=== PATIENT | female | born 1955 | race African-American/Black ===

== ENCOUNTER 2017-06-28 19:30 | Inpatient (IN) ==
[2017-06-28 22:41] LABS: Basophils % 0.3 % (0.0-0.8); Eosinophils % 0.3 % (0.00-10.9); Hematocrit 42.6 VOL% (35.7-47.0); Hemoglobin 14.5 GM/DL (12.0-16.0); Immature Granulocytes % 0.5 %; Immature Granulocytes Absolute 0.04 #; Lymphocytes # 1.8 10*3/uL (1.4-4.0); Lymphocytes % 20.4 % (21.3-54.2); Mean Corpuscular Hemoglobin 30 PG (27-34); Mean Corpuscular Volume 89.3 FL (87-102); Mean Platelet Volume 8.8 FL (9.6-12.0); Monocytes # 0.7 10*3/uL (0.11-0.8); Monocytes % 8.2 % (1.7-12.7); Neutrophils # 6.2 10*3/uL (1.4-7.4); Neutrophils % 70.3 % (38.7-73.9); Platelet Count 255 T/CUMM (130-400); Red Blood Count 4.77 MC/CUMM (3.8-5.5); Red Cell Distribution Width 13.3 % (9.3-17.3); White Blood Count 8.8 T/CUMM (4-12)
[2017-06-28 22:51] LABS: INR 0.9; Partial Thromboplastin Time 28.5 SECS (0-40)
[2017-06-28 23:00] LABS: Alanine Aminotransferase 14 U/L (13-56); Albumin 3.3 G/DL (3.4-5.0); Alkaline Phosphatase 84 U/L (45-117); Aspartate Amino Transferase 6 U/L (0-37); Bilirubin,Total < 0.39 MG/DL (0.2-1.0); Blood Urea Nitrogen 9 MG/DL (7-18); Calcium 9.5 MG/DL (8.5-10.1); Glucose 91 MG/DL (74-106); Osmolality,Calculated 273.7 MOS/KG (273-304); Potassium 3.5 MMOL/L (3.5-5.1); Sodium 138 MMOL/L (136-145); Total Protein 7.1 G/DL (6.4-8.3)
[2017-06-29] MEDS ORDERED: ACETAMINOPHEN 325 MG TABLET PO PRN (01:42)
[2017-06-29] MEDS ORDERED: CHOLESTYRAMINE 4 GM PACK PO PRN (01:50)
[2017-06-29] MEDS ORDERED: HYDROmorphone 2 MG/1 ML VIAL IV STA (01:58)
[2017-06-29] MEDS ORDERED: HYDROmorphone 2 MG/1 ML VIAL ONE (02:02)
[2017-06-29] MEDS ORDERED: INFLUENZA VIRUS VACCINE 0.5 ML SYRINGE IM ONE (04:49)
[2017-06-29] MEDS: PANTOPRAZOLE 40 MG TABLET PO SCH (09:54)
[2017-06-29] MEDS: ISOSORBIDE MONONITRATE 30 MG TABLET PO SCH (09:54)
[2017-06-29] MEDS: RANOLAZINE 500 MG TABLET PO SCH ×2 (09:54→20:10)
[2017-06-29] MEDS: CARVEDILOL 25 MG TABLET PO SCH ×2 (09:54→20:10)
[2017-06-29] MEDS: amLODIPine 10 MG TABLET PO SCH (09:54)
[2017-06-29] MEDS: CLOPIDOGREL 75 MG TABLET PO SCH (09:55)
[2017-06-29] MEDS: ASPIRIN EC 81 MG TABLET PO SCH (09:55)
[2017-06-29] MEDS: traMADol 50 MG TABLET PO SCH ×4 (09:55→20:11)
[2017-06-29] MEDS: cycloSPORINE OPH EMUL 1 VIAL BOTH EYES SCH ×2 (09:55→20:11)
[2017-06-29] MEDS: METOCLOPRAMIDE 5 MG TABLET PO SCH ×4 (09:55→20:10)
[2017-06-29] MEDS: POLYETHYLENE GLYCOL POWDER 17 GM PACK PO SCH (09:55)
[2017-06-29] MEDS: DEXAMETHASONE 10 MG/1 ML VIAL IV SCH ×2 (15:36→20:11)
[2017-06-29] MEDS: PRAVASTATIN 40 MG TABLET PO SCH (20:10)
[2017-06-29] MEDS ORDERED: TEMOZOLOMIDE PO SCH (21:00)
[2017-06-30] MEDS ORDERED: ZIPRASIDONE 20 MG/1 ML VIAL IM PRN (01:43)
[2017-06-30] MEDS ORDERED: SODIUM CHLORIDE 0.9% IV ONE ×2 (07:33→13:30)
[2017-06-30] MEDS ORDERED: BEVACIZUMAB IV ONE ×2 (07:33→13:30)
[2017-06-30] MEDS: METOCLOPRAMIDE 5 MG TABLET PO SCH ×4 (09:15→21:52)
[2017-06-30] MEDS: POLYETHYLENE GLYCOL POWDER 17 GM PACK PO SCH (09:15)
[2017-06-30] MEDS: amLODIPine 10 MG TABLET PO SCH (09:15)
[2017-06-30] MEDS: CARVEDILOL 25 MG TABLET PO SCH ×2 (09:16→21:54)
[2017-06-30] MEDS: PANTOPRAZOLE 40 MG TABLET PO SCH (09:16)
[2017-06-30] MEDS: ISOSORBIDE MONONITRATE 30 MG TABLET PO SCH (09:16)
[2017-06-30] MEDS: ASPIRIN EC 81 MG TABLET PO SCH (09:16)
[2017-06-30] MEDS: RANOLAZINE 500 MG TABLET PO SCH ×2 (09:16→21:55)
[2017-06-30] MEDS: DEXAMETHASONE 10 MG/1 ML VIAL IV SCH ×2 (09:17→21:56)
[2017-06-30] MEDS: traMADol 50 MG TABLET PO SCH ×4 (09:17→21:54)
[2017-06-30] MEDS: CLOPIDOGREL 75 MG TABLET PO SCH (09:18)
[2017-06-30] MEDS: cycloSPORINE OPH EMUL 1 VIAL BOTH EYES SCH ×2 (09:24→22:01)
[2017-06-30 12:02] LABS: Apearance,Urine Slightly Hazy (Clear); Bilirubin,Urine Negative (Negative); Blood, Urine Negative (Negative); Glucose,Urine (UA) Negative (Negative); Ketones,Urine Negative (Negative); Mucus,Urine Occasional /LPF (Occasional); Nitrite,Urine Negative (Negative); Protein,Urine 30 MG/DL; RBC,Urine 1 /HPF (0-4); Squamous Epithelial Cell,Urine Occasional /HPF (0-10); Urine Color Amber (Yellow); Urine Specific Gravity 1.019 (1.001-1.035)
[2017-06-30 15:01] LABS: Troponin I Only < 0.015 NG/ML (0.00-0.045)
[2017-06-30] MEDS: PRAVASTATIN 40 MG TABLET PO SCH (21:52)
[2017-07-01 06:58] LABS: Basophils % 0.1 % (0.0-0.8); Hematocrit 37.4 VOL% (35.7-47.0); Hemoglobin 12.8 GM/DL (12.0-16.0); Immature Granulocytes % 0.8 %; Immature Granulocytes Absolute 0.18 #; Lymphocytes # 0.9 10*3/uL (1.4-4.0); Mean Corpuscular HGB Conc 34.2 GM/DL (32-36); Mean Corpuscular Hemoglobin 31 PG (27-34); Monocytes # 0.4 10*3/uL (0.11-0.8); Monocytes % 1.8 % (1.7-12.7); Neutrophils # 21.7 10*3/uL (1.4-7.4); Neutrophils % 93.3 % (38.7-73.9); Platelet Count 265 T/CUMM (130-400); Red Cell Distribution Width 13.4 % (9.3-17.3); White Blood Count 23.2 T/CUMM (4-12)
[2017-07-01 07:24] LABS: Lymphocytes 5 % (20-55); Macrocytosis 1+; Microcytosis Slight; Platelet Estimate Adequate; Segmented Neutrophils 93 % (50-85); Total Cells Counted 100
[2017-07-01 07:31] LABS: Osmolality,Calculated 283.4 MOS/KG (273-304); Potassium 4.1 MMOL/L (3.5-5.1)
[2017-07-01] MEDS: METOCLOPRAMIDE 5 MG TABLET PO SCH ×2 (08:59→12:44)
[2017-07-01] MEDS: ISOSORBIDE MONONITRATE 30 MG TABLET PO SCH (08:59)
[2017-07-01] MEDS: PANTOPRAZOLE 40 MG TABLET PO SCH (08:59)
[2017-07-01] MEDS: RANOLAZINE 500 MG TABLET PO SCH (08:59)
[2017-07-01] MEDS: ASPIRIN EC 81 MG TABLET PO SCH (08:59)
[2017-07-01] MEDS: amLODIPine 10 MG TABLET PO SCH (08:59)
[2017-07-01] MEDS: CARVEDILOL 25 MG TABLET PO SCH (08:59)
[2017-07-01] MEDS: cycloSPORINE OPH EMUL 1 VIAL BOTH EYES SCH (09:00)
[2017-07-01] MEDS ORDERED: DEXAMETHASONE 4 MG TABLET PO SCH (09:00)
[2017-07-01] MEDS: POLYETHYLENE GLYCOL POWDER 17 GM PACK PO SCH (09:01)
[2017-07-01] MEDS: CLOPIDOGREL 75 MG TABLET PO SCH (09:01)
[2017-07-01] MEDS: traMADol 50 MG TABLET PO SCH ×3 (09:01→12:56)
[2017-07-01 12:29] VITALS: BP 123/77
== END 2017-07-01 13:20 | disposition home health service (06) | DRG 54 ==
LOC: N.ED 19:30 → N.EDINP 06-29 01:42 → N.4E 06-29 02:24
PROVIDERS: ADMIT Internal Medicine; ATTEND Internal Medicine

== ENCOUNTER 2017-07-08 13:45 | Inpatient (IN) ==
[2017-07-08] MEDS ORDERED: ALUM/MAG/SIMETH/LIDO VISC 1:1 30 ML BOTTLE PO STA (15:55)
[2017-07-08] MEDS ORDERED: SODIUM CHLORIDE 0.9% 1,000 ML IV STA (15:55)
[2017-07-08] MEDS ORDERED: ALUM/MAG/SIMETH/LIDO VISC 1:1 30 ML BOTTLE PO ONE (16:04)
[2017-07-08] MEDS ORDERED: FLUCONAZOLE INJ 400 MG in PREMIX 1 EACH IV ONE (16:05)
[2017-07-08 18:40] LABS: Basophils % 0.2 % (0.0-0.8); Hematocrit 43.7 VOL% (35.7-47.0); Hemoglobin 15.2 GM/DL (12.0-16.0); Immature Granulocytes % 1.5 %; Immature Granulocytes Absolute 0.21 #; Lymphocytes # 0.9 10*3/uL (1.4-4.0); Lymphocytes % 6.4 % (21.3-54.2); Mean Corpuscular HGB Conc 34.8 GM/DL (32-36); Mean Corpuscular Hemoglobin 31 PG (27-34); Mean Corpuscular Volume 88.3 FL (87-102); Mean Platelet Volume 8.9 FL (9.6-12.0); Monocytes # 0.3 10*3/uL (0.11-0.8); Monocytes % 2.4 % (1.7-12.7); Neutrophils # 12.4 10*3/uL (1.4-7.4); Neutrophils % 89.5 % (38.7-73.9); Platelet Count 188 T/CUMM (130-400); Red Blood Count 4.95 MC/CUMM (3.8-5.5); Red Cell Distribution Width 13.2 % (9.3-17.3); White Blood Count 13.8 T/CUMM (4-12)
[2017-07-08 18:48] LABS: INR 1.1; PT Patient Result 11.1 SECS
[2017-07-08 19:07] LABS: Alanine Aminotransferase 39 U/L (13-56); Albumin 2.8 G/DL (3.4-5.0); Alkaline Phosphatase 56 U/L (45-117); Aspartate Amino Transferase 11 U/L (0-37); Bilirubin,Total < 0.39 MG/DL (0.2-1.0); Blood Urea Nitrogen 29 MG/DL (7-18); Calcium 8.9 MG/DL (8.5-10.1); Glucose 129 MG/DL (74-106); Magnesium 2.8 MG/DL (1.8-2.4); Osmolality,Calculated 277.1 MOS/KG (273-304); Potassium 4.9 MMOL/L (3.5-5.1); Sodium 135 MMOL/L (136-145); Total Protein 5.9 G/DL (6.4-8.3)
[2017-07-08 19:21] LABS: Apearance,Urine CLEAR (Clear); Bilirubin,Urine Negative (Negative); Blood, Urine Negative (Negative); Glucose,Urine (UA) Negative (Negative); Ketones,Urine Negative (Negative); Nitrite,Urine Negative (Negative); Protein,Urine Negative; Squamous Epithelial Cell,Urine Occasional /HPF (0-10); Urine Color Straw (Yellow); Urine Urobilinogen < 2.0 EU/DL (0.2-1.0); WBC,Urine <1 /HPF (0-6)
[2017-07-08] MEDS ORDERED: TEMAZEPAM 7.5 MG CAPSULE PO PRN (19:49)
[2017-07-08] MEDS ORDERED: traMADol 50 MG TABLET PO PRN (19:49)
[2017-07-08] MEDS ORDERED: LACTULOSE 20 GM/30 ML UDCUP PO PRN (19:49)
[2017-07-08] MEDS ORDERED: ALUMINUM/MAGNES/SIMETH MAX STR 30 ML UDCUP PO PRN (19:49)
[2017-07-08] MEDS ORDERED: chlorproMAZINE 25 MG TABLET PO PRN (19:49)
[2017-07-08] MEDS ORDERED: BENZTROPINE 2 MG/2 ML AMP IV PRN (19:49)
[2017-07-08] MEDS ORDERED: LOPERAMIDE 2 MG CAPSULE PO PRN ×2 (19:49)
[2017-07-08] MEDS ORDERED: guaiFENesin 200 MG/10 ML UDCUP PO PRN (19:49)
[2017-07-08] MEDS ORDERED: ACETAMINOPHEN 325 MG TABLET PO PRN (19:49)
[2017-07-08] MEDS ORDERED: ONDANSETRON 4 MG/2 ML VIAL IV PRN (19:49)
[2017-07-08] MEDS ORDERED: diphenhydrAMINE CAP 25 MG CAPSULE PO PRN (19:49)
[2017-07-08] MEDS ORDERED: MAGNESIUM HYDROXIDE SUSP 30 ML UDCUP PO PRN (19:49)
[2017-07-08] MEDS ORDERED: ALPRAZolam 0.25 MG TABLET PO PRN (19:49)
[2017-07-08] MEDS ORDERED: PROMETHAZINE INJ 25 MG in SODIUM CHLORIDE 0.9% 50 ML IV PRN (19:49)
[2017-07-08] MEDS ORDERED: MYLANTA/LIDO VISC 2:1 300 ML BOTTLE SWISH/SWAL PRN (19:49)
[2017-07-08] MEDS ORDERED: chlorproMAZINE INJ 50 MG in SODIUM CHLORIDE 0.9% 100 ML IV PRN (19:49)
[2017-07-08] MEDS ORDERED: chlorproMAZINE INJ 25 MG in SODIUM CHLORIDE 0.9% 100 ML IV PRN (19:49)
[2017-07-08] MEDS: SODIUM CHLORIDE 0.9% 1,000 ML IV SCH (20:50)
[2017-07-09] MEDS: SODIUM CHLORIDE 0.9% 1,000 ML IV SCH ×3 (07:55→18:30)
[2017-07-09] MEDS ORDERED: NAPROXEN 500 MG TABLET PO PRN (10:04)
[2017-07-09] MEDS ORDERED: tiZANidine 4 MG TABLET PO PRN (10:04)
[2017-07-09] MEDS ORDERED: cycloSPORINE OPH EMUL 1 VIAL BOTH EYES PRN (10:04)
[2017-07-09] MEDS: FLUCONAZOLE INJ 400 MG in PREMIX 1 EACH IV SCH (10:46)
[2017-07-09] MEDS: CARVEDILOL 25 MG TABLET PO SCH ×2 (10:47→20:43)
[2017-07-09] MEDS: PANTOPRAZOLE 40 MG TABLET PO SCH (10:47)
[2017-07-09] MEDS: ISOSORBIDE MONONITRATE 30 MG TABLET PO SCH (10:47)
[2017-07-09] MEDS: amLODIPine 10 MG TABLET PO SCH (10:47)
[2017-07-09] MEDS: ASPIRIN EC 81 MG TABLET PO SCH (10:47)
[2017-07-09] MEDS: DEXAMETHASONE 4 MG TABLET PO SCH ×2 (10:47→20:43)
[2017-07-09] MEDS: levETIRAcetam 500 MG TABLET PO SCH ×2 (10:47→20:43)
[2017-07-09] MEDS: RANOLAZINE 500 MG TABLET PO SCH ×2 (10:47→20:42)
[2017-07-09] MEDS: METOCLOPRAMIDE 5 MG TABLET PO SCH ×3 (10:47→20:46)
[2017-07-09] MEDS: MYLANTA/LIDO VISC 2:1 300 ML BOTTLE SWISH/SPIT PRN ×2 (13:21→16:34)
[2017-07-09] MEDS: traMADol 50 MG TABLET PO SCH (16:33)
[2017-07-09] MEDS ORDERED: ONDANSETRON 4 MG TABLET PO SCH (21:00)
[2017-07-09] MEDS ORDERED: GABAPENTIN 100 MG CAPSULE PO SCH (21:00)
[2017-07-09] MEDS ORDERED: PRAVASTATIN 40 MG TABLET PO SCH (21:00)
[2017-07-09] MEDS ORDERED: TEMOZOLOMIDE PO SCH (21:00)
[2017-07-10] MEDS: SODIUM CHLORIDE 0.9% 1,000 ML IV SCH ×2 (02:17→08:59)
[2017-07-10 07:00] LABS: Basophils % 0.1 % (0.0-0.8); Hematocrit 37.8 VOL% (35.7-47.0); Hemoglobin 12.8 GM/DL (12.0-16.0); Immature Granulocytes % 1.3 %; Lymphocytes # 0.5 10*3/uL (1.4-4.0); Mean Corpuscular HGB Conc 33.9 GM/DL (32-36); Mean Corpuscular Hemoglobin 30 PG (27-34); Mean Corpuscular Volume 89.4 FL (87-102); Mean Platelet Volume 9.6 FL (9.6-12.0); Monocytes # 0.3 10*3/uL (0.11-0.8); Monocytes % 2.1 % (1.7-12.7); Neutrophils # 14.8 10*3/uL (1.4-7.4); Neutrophils % 93.5 % (38.7-73.9); Platelet Count 164 T/CUMM (130-400); Red Blood Count 4.23 MC/CUMM (3.8-5.5); Red Cell Distribution Width 13.7 % (9.3-17.3); White Blood Count 15.8 T/CUMM (4-12)
[2017-07-10 08:10] LABS: Burr Cells Slight; Hypochromasia Slight; Lymphocytes 7 % (20-55); Ovalocytes Slight; Platelet Estimate Normal; Segmented Neutrophils 93 % (50-85); Total Cells Counted 100
[2017-07-10 08:11] LABS: Giant Platelets Few
[2017-07-10] MEDS: FLUCONAZOLE INJ 400 MG in PREMIX 1 EACH IV SCH (09:01)
[2017-07-10] MEDS: METOCLOPRAMIDE 5 MG TABLET PO SCH (09:02)
[2017-07-10] MEDS: amLODIPine 10 MG TABLET PO SCH (09:02)
[2017-07-10] MEDS: traMADol 50 MG TABLET PO SCH (09:03)
[2017-07-10] MEDS: levETIRAcetam 500 MG TABLET PO SCH (09:03)
[2017-07-10] MEDS: DEXAMETHASONE 4 MG TABLET PO SCH (09:03)
[2017-07-10] MEDS: ISOSORBIDE MONONITRATE 30 MG TABLET PO SCH (09:05)
[2017-07-10] MEDS: PANTOPRAZOLE 40 MG TABLET PO SCH (09:05)
[2017-07-10] MEDS: CARVEDILOL 25 MG TABLET PO SCH (09:05)
[2017-07-10] MEDS: RANOLAZINE 500 MG TABLET PO SCH (09:05)
[2017-07-10] MEDS: ASPIRIN EC 81 MG TABLET PO SCH (09:05)
[2017-07-10 11:24] LABS: Albumin 2.3 G/DL (3.4-5.0); Bilirubin,Total 0.5 MG/DL (0.2-1.0); Calcium 8.4 MG/DL (8.5-10.1); Osmolality,Calculated 286.4 MOS/KG (273-304); Potassium 4.2 MMOL/L (3.5-5.1); Total Protein 5.1 G/DL (6.4-8.3)
[2017-07-10 11:58] VITALS: BP 120/60
== END 2017-07-10 14:13 | disposition home health service (06) | DRG 55 ==
LOC: N.ED 13:45 → N.EDINP 17:35 → N.4E 18:56
PROVIDERS: ADMIT Specialist; ATTEND Specialist

== ENCOUNTER 2017-07-19 21:09 | Inpatient (IN) ==
[2017-07-19 23:37] LABS: Basophils % 0.1 % (0.0-0.8); Hemoglobin 14.4 GM/DL (12.0-16.0); Immature Granulocytes Absolute 0.51 #; Lymphocytes # 0.3 10*3/uL (1.4-4.0); Mean Corpuscular HGB Conc 34.3 GM/DL (32-36); Mean Corpuscular Hemoglobin 31 PG (27-34); Mean Corpuscular Volume 89.6 FL (87-102); Monocytes # 0.3 10*3/uL (0.11-0.8); NRBC # 0.07 10*3/uL; Neutrophils # 15.6 10*3/uL (1.4-7.4); Neutrophils % 92.9 % (38.7-73.9); Platelet Count 114 T/CUMM (130-400); Red Blood Count 4.69 MC/CUMM (3.8-5.5); Red Cell Distribution Width 15.2 % (9.3-17.3); White Blood Count 16.8 T/CUMM (4-12)
[2017-07-20 00:06] LABS: Albumin 2.4 G/DL (3.4-5.0); Bilirubin,Total 0.4 MG/DL (0.2-1.0); Calcium 8.2 MG/DL (8.5-10.1); Total Protein 5.4 G/DL (6.4-8.3)
[2017-07-20 00:07] LABS: Potassium 5.2 MMOL/L (3.5-5.1)
[2017-07-20 00:10] LABS: Troponin I Only 0.058 NG/ML (0.00-0.045)
[2017-07-20 01:59] LABS: Apearance,Urine HAZY (Clear); Glucose,Urine (UA) Negative (Negative); Ketones,Urine Negative (Negative); Protein,Urine 30 MG/DL; Urine Color Yellow (Yellow)
[2017-07-20 02:00] LABS: Bilirubin,Urine Negative (Negative); Blood, Urine Trace mg/dL (Negative); Nitrite,Urine Negative (Negative); Urine Urobilinogen 0.2 EU/DL (0.2-1.0)
[2017-07-20 02:01] LABS: Ictotest,Urine Negative (Negative)
[2017-07-20 03:05] LABS: Band Neutrophils 1 % (0-10); Lymphocytes 3 % (20-55); Platelet Estimate Normal; Segmented Neutrophils 95 % (50-85); Total Cells Counted 100
[2017-07-20] MEDS ORDERED: ACETAMINOPHEN 325 MG TABLET PO PRN (04:42)
[2017-07-20] MEDS ORDERED: ONDANSETRON 4 MG/2 ML VIAL IV PRN (04:42)
[2017-07-20] MEDS ORDERED: NICOTINE 21 MG/24 HR PATCH TRANSDERM PRN (04:42)
[2017-07-20] MEDS ORDERED: CALCIUM GLUCONATE 1,000 MG in SODIUM CHLORIDE 0.9% 100 ML IV ONE (04:42)
[2017-07-20] MEDS ORDERED: MORPHINE 2 MG/1 ML SYRINGE IV PRN (04:42)
[2017-07-20] MEDS ORDERED: cycloSPORINE OPH EMUL 1 VIAL BOTH EYES PRN (04:42)
[2017-07-20] MEDS ORDERED: INFLUENZA VIRUS VACCINE 0.5 ML SYRINGE IM ONE (05:01)
[2017-07-20] MEDS: SODIUM CHLORIDE 0.9% 1,000 ML IV SCH ×2 (05:24→21:16)
[2017-07-20] MEDS: CIPROFLOXACIN INJ 400 MG in PREMIX 1 EACH IV SCH ×2 (05:24→16:03)
[2017-07-20] MEDS: METOCLOPRAMIDE 5 MG TABLET PO SCH ×4 (07:29→20:36)
[2017-07-20] MEDS: levETIRAcetam 500 MG TABLET PO SCH ×2 (10:04→20:36)
[2017-07-20] MEDS: DEXAMETHASONE 4 MG TABLET PO SCH ×2 (10:04→20:36)
[2017-07-20] MEDS: DOCUSATE SODIUM 100 MG CAPSULE PO SCH ×2 (10:05→20:36)
[2017-07-20] MEDS: hydrALAZINE 25 MG TABLET PO SCH ×3 (10:05→20:35)
[2017-07-20] MEDS: PANTOPRAZOLE 40 MG TABLET PO SCH (10:05)
[2017-07-20] MEDS: ASPIRIN EC 81 MG TABLET PO SCH (10:06)
[2017-07-20] MEDS: ENOXAPARIN 40 MG/0.4 ML SYRINGE SUBCUT SCH (10:06)
[2017-07-20] MEDS: RANOLAZINE 500 MG TABLET PO SCH ×2 (10:06→21:18)
[2017-07-20] MEDS: CARVEDILOL 25 MG TABLET PO SCH ×2 (10:06→20:36)
[2017-07-20] MEDS: KETOCONAZOLE 2% CREAM 30 GM TUBE TOP SCH ×2 (10:06→21:19)
[2017-07-20 12:48] LABS: Calcium 8.3 MG/DL (8.5-10.1); Magnesium 2.1 MG/DL (1.8-2.4); Osmolality,Calculated 280.7 MOS/KG (273-304); Potassium 4.8 MMOL/L (3.5-5.1)
[2017-07-20 12:53] LABS: Troponin I Only 0.058 NG/ML (0.00-0.045)
[2017-07-20] MEDS ORDERED: CLOPIDOGREL 300 MG TABLET PO ONE (14:41)
[2017-07-20 14:56] LABS: Troponin I Only 0.057 NG/ML (0.00-0.045)
[2017-07-20] MEDS: DESITIN 4OZ/NYSTATIN 15 GRAM MIXTURE PASTE TOP SCH ×2 (18:03→20:40)
[2017-07-20] MEDS: PRAVASTATIN 40 MG TABLET PO SCH (21:19)
[2017-07-20] MEDS: amLODIPine 10 MG TABLET PO SCH (21:19)
[2017-07-21 04:45] LABS: Basophils % 0.2 % (0.0-0.8); Hematocrit 39.4 VOL% (35.7-47.0); Hemoglobin 13.8 GM/DL (12.0-16.0); Immature Granulocytes % 2.3 %; Lymphocytes # 0.3 10*3/uL (1.4-4.0); Mean Corpuscular Hemoglobin 31 PG (27-34); Mean Corpuscular Volume 87.2 FL (87-102); Mean Platelet Volume 9.9 FL (9.6-12.0); Monocytes # 0.2 10*3/uL (0.11-0.8); Monocytes % 1.4 % (1.7-12.7); Neutrophils # 12.5 10*3/uL (1.4-7.4); Neutrophils % 94.1 % (38.7-73.9); Platelet Count 101 T/CUMM (130-400); Red Blood Count 4.52 MC/CUMM (3.8-5.5); Red Cell Distribution Width 15.2 % (9.3-17.3); White Blood Count 13.3 T/CUMM (4-12)
[2017-07-21] MEDS: CIPROFLOXACIN INJ 400 MG in PREMIX 1 EACH IV SCH ×2 (05:15→18:56)
[2017-07-21 05:17] LABS: Apearance,Urine Clear (Clear); Bilirubin,Urine Negative (Negative); Glucose,Urine (UA) Negative (Negative); Ketones,Urine Negative (Negative); Nitrite,Urine Negative (Negative); Protein,Urine Negative; Urine Color Straw (Yellow)
[2017-07-21 05:18] LABS: Blood, Urine Negative (Negative); Squamous Epithelial Cell,Urine Rare /HPF (0-10); Urine Urobilinogen 0.2 EU/DL (0.2-1.0); WBC,Urine Rare /HPF (0-6)
[2017-07-21 05:21] LABS: Band Neutrophils 1 % (0-10); Calcium 8.2 MG/DL (8.5-10.1); Magnesium 2.2 MG/DL (1.8-2.4); Nucleated Red Blood Cells 1 (0-5); Osmolality,Calculated 279.8 MOS/KG (273-304); Potassium 4.5 MMOL/L (3.5-5.1); Risk Ratio 2.87; Segmented Neutrophils 99 % (50-85); Total Cells Counted 100; VLDL CHOLESTEROL 50.4 MG/DL
[2017-07-21 05:22] LABS: Platelet Estimate Decreased; Polychromasia Slight
[2017-07-21 05:23] LABS: Target Cells Few
[2017-07-21] MEDS: hydrALAZINE 25 MG TABLET PO SCH (09:50)
[2017-07-21] MEDS: ASPIRIN EC 81 MG TABLET PO SCH (09:51)
[2017-07-21] MEDS: CARVEDILOL 25 MG TABLET PO SCH ×2 (09:51→21:06)
[2017-07-21] MEDS: ENOXAPARIN 40 MG/0.4 ML SYRINGE SUBCUT SCH (09:51)
[2017-07-21] MEDS: levETIRAcetam 500 MG TABLET PO SCH ×2 (09:51→21:06)
[2017-07-21] MEDS: DOCUSATE SODIUM 100 MG CAPSULE PO SCH ×2 (09:51→21:05)
[2017-07-21] MEDS: METOCLOPRAMIDE 5 MG TABLET PO SCH ×4 (09:51→21:06)
[2017-07-21] MEDS: CLOPIDOGREL 75 MG TABLET PO SCH (09:51)
[2017-07-21] MEDS: PANTOPRAZOLE 40 MG TABLET PO SCH (09:51)
[2017-07-21] MEDS: DEXAMETHASONE 4 MG TABLET PO SCH ×2 (09:51→21:06)
[2017-07-21] MEDS: RANOLAZINE 500 MG TABLET PO SCH ×2 (09:51→21:06)
[2017-07-21] MEDS: DESITIN 4OZ/NYSTATIN 15 GRAM MIXTURE PASTE TOP SCH ×2 (12:51→21:06)
[2017-07-21] MEDS: KETOCONAZOLE 2% CREAM 30 GM TUBE TOP SCH ×2 (12:52→21:06)
[2017-07-21] MEDS: SODIUM CHLORIDE 0.9% 1,000 ML IV SCH ×2 (12:56→21:03)
[2017-07-21] MEDS: PRAVASTATIN 40 MG TABLET PO SCH (21:05)
[2017-07-21] MEDS: amLODIPine 10 MG TABLET PO SCH (21:06)
[2017-07-22 05:15] LABS: Basophils % 0.1 % (0.0-0.8); Hematocrit 38.3 VOL% (35.7-47.0); Hemoglobin 13.3 GM/DL (12.0-16.0); Immature Granulocytes % 2.7 %; Immature Granulocytes Absolute 0.32 #; Lymphocytes # 0.2 10*3/uL (1.4-4.0); Lymphocytes % 1.6 % (21.3-54.2); Mean Corpuscular HGB Conc 34.7 GM/DL (32-36); Mean Corpuscular Hemoglobin 31 PG (27-34); Mean Corpuscular Volume 87.8 FL (87-102); Mean Platelet Volume 10.2 FL (9.6-12.0); Monocytes # 0.3 10*3/uL (0.11-0.8); Monocytes % 2.1 % (1.7-12.7); Neutrophils # 10.9 10*3/uL (1.4-7.4); Neutrophils % 93.5 % (38.7-73.9); Platelet Count 91 T/CUMM (130-400); Red Blood Count 4.36 MC/CUMM (3.8-5.5); White Blood Count 11.7 T/CUMM (4-12)
[2017-07-22] MEDS: CIPROFLOXACIN INJ 400 MG in PREMIX 1 EACH IV SCH ×2 (05:18→17:47)
[2017-07-22 05:40] LABS: Band Neutrophils 1 % (0-10); Giant Platelets Few; Hypochromasia 1+; Platelet Estimate Decreased; Segmented Neutrophils 97 % (50-85); Total Cells Counted 100
[2017-07-22 05:50] LABS: Calcium 7.9 MG/DL (8.5-10.1); Osmolality,Calculated 281.8 MOS/KG (273-304); Potassium 3.9 MMOL/L (3.5-5.1)
[2017-07-22] MEDS: DEXAMETHASONE 4 MG TABLET PO SCH ×2 (09:06→21:27)
[2017-07-22] MEDS: METOCLOPRAMIDE 5 MG TABLET PO SCH ×4 (09:07→21:28)
[2017-07-22] MEDS: RANOLAZINE 500 MG TABLET PO SCH ×2 (09:07→21:28)
[2017-07-22] MEDS: PANTOPRAZOLE 40 MG TABLET PO SCH (09:07)
[2017-07-22] MEDS: CARVEDILOL 25 MG TABLET PO SCH ×2 (09:09→21:28)
[2017-07-22] MEDS: CLOPIDOGREL 75 MG TABLET PO SCH (09:09)
[2017-07-22] MEDS: ASPIRIN EC 81 MG TABLET PO SCH (09:09)
[2017-07-22] MEDS: levETIRAcetam 500 MG TABLET PO SCH ×2 (09:09→21:28)
[2017-07-22] MEDS: DOCUSATE SODIUM 100 MG CAPSULE PO SCH ×2 (09:09→21:28)
[2017-07-22] MEDS: KETOCONAZOLE 2% CREAM 30 GM TUBE TOP SCH ×2 (09:10→21:32)
[2017-07-22] MEDS: DESITIN 4OZ/NYSTATIN 15 GRAM MIXTURE PASTE TOP SCH ×2 (09:10→21:32)
[2017-07-22] MEDS: ENOXAPARIN 40 MG/0.4 ML SYRINGE SUBCUT SCH (09:10)
[2017-07-22 13:24] LABS: Apearance,Urine CLEAR (Clear); Bacteria,Urine Occasional /HPF (Few); Bilirubin,Urine Negative (Negative); Blood, Urine Negative (Negative); Glucose,Urine (UA) Negative (Negative); Hyaline Casts,Urine 1 /LPF (0-3); Ketones,Urine Negative (Negative); Mucus,Urine Occasional /LPF (Occasional); Nitrite,Urine Negative (Negative); Protein,Urine Negative; RBC,Urine 7 /HPF (0-4); Urine Color Yellow (Yellow); Urine Specific Gravity 1.013 (1.001-1.035); Urine Urobilinogen < 2.0 EU/DL (0.2-1.0); WBC,Urine 4 /HPF (0-6)
[2017-07-22] MEDS: SODIUM CHLORIDE 0.9% 1,000 ML IV SCH (17:51)
[2017-07-22] MEDS: amLODIPine 10 MG TABLET PO SCH (21:28)
[2017-07-22] MEDS: PRAVASTATIN 40 MG TABLET PO SCH (21:28)
[2017-07-22] MEDS: traZODone 50 MG TABLET PO SCH (22:57)
[2017-07-23] MEDS: SODIUM CHLORIDE 0.9% 1,000 ML IV SCH ×2 (01:25→16:33)
[2017-07-23] MEDS: CIPROFLOXACIN INJ 400 MG in PREMIX 1 EACH IV SCH ×2 (04:43→16:31)
[2017-07-23 04:54] LABS: Basophils % 0.2 % (0.0-0.8); Hematocrit 36.8 VOL% (35.7-47.0); Immature Granulocytes % 2.3 %; Immature Granulocytes Absolute 0.21 #; Lymphocytes # 0.2 10*3/uL (1.4-4.0); Lymphocytes % 2.2 % (21.3-54.2); Mean Corpuscular HGB Conc 35.3 GM/DL (32-36); Mean Corpuscular Hemoglobin 31 PG (27-34); Mean Corpuscular Volume 87.2 FL (87-102); Mean Platelet Volume 10.7 FL (9.6-12.0); Monocytes # 0.3 10*3/uL (0.11-0.8); Neutrophils # 8.6 10*3/uL (1.4-7.4); Neutrophils % 92.3 % (38.7-73.9); Platelet Count 87 T/CUMM (130-400); Red Blood Count 4.22 MC/CUMM (3.8-5.5); Red Cell Distribution Width 15.3 % (9.3-17.3); White Blood Count 9.3 T/CUMM (4-12)
[2017-07-23 05:17] LABS: Calcium 7.8 MG/DL (8.5-10.1); Magnesium 1.9 MG/DL (1.8-2.4); Osmolality,Calculated 283.5 MOS/KG (273-304); Potassium 3.8 MMOL/L (3.5-5.1)
[2017-07-23 05:33] LABS: Band Neutrophils 6 % (0-10); Lymphocytes 1 % (20-55); Segmented Neutrophils 88 % (50-85); Total Cells Counted 100
[2017-07-23 05:34] LABS: Anisocytosis 1+; Poikilocytosis 1+; Polychromasia Slight
[2017-07-23] MEDS: METOCLOPRAMIDE 5 MG TABLET PO SCH ×4 (09:34→21:33)
[2017-07-23] MEDS: CLOPIDOGREL 75 MG TABLET PO SCH (09:34)
[2017-07-23] MEDS: RANOLAZINE 500 MG TABLET PO SCH ×2 (09:34→21:33)
[2017-07-23] MEDS: levETIRAcetam 500 MG TABLET PO SCH ×2 (09:34→21:32)
[2017-07-23] MEDS: ENOXAPARIN 40 MG/0.4 ML SYRINGE SUBCUT SCH (09:34)
[2017-07-23] MEDS: ASPIRIN EC 81 MG TABLET PO SCH (09:34)
[2017-07-23] MEDS: DOCUSATE SODIUM 100 MG CAPSULE PO SCH ×2 (09:35→21:33)
[2017-07-23] MEDS: DEXAMETHASONE 4 MG TABLET PO SCH ×2 (09:35→21:32)
[2017-07-23] MEDS: CARVEDILOL 25 MG TABLET PO SCH ×2 (09:35→21:33)
[2017-07-23] MEDS: PANTOPRAZOLE 40 MG TABLET PO SCH (09:35)
[2017-07-23] MEDS: DESITIN 4OZ/NYSTATIN 15 GRAM MIXTURE PASTE TOP SCH ×2 (09:35→21:36)
[2017-07-23] MEDS: KETOCONAZOLE 2% CREAM 30 GM TUBE TOP SCH ×2 (09:37→21:34)
[2017-07-23] MEDS: PRAVASTATIN 40 MG TABLET PO SCH (21:32)
[2017-07-23] MEDS: amLODIPine 10 MG TABLET PO SCH (21:32)
[2017-07-23] MEDS: traZODone 50 MG TABLET PO SCH (21:32)
[2017-07-24] MEDS: CIPROFLOXACIN INJ 400 MG in PREMIX 1 EACH IV SCH ×2 (04:57→16:11)
[2017-07-24] MEDS: SODIUM CHLORIDE 0.9% 1,000 ML IV SCH ×3 (06:37→16:35)
[2017-07-24] MEDS: METOCLOPRAMIDE 5 MG TABLET PO SCH ×4 (07:59→21:17)
[2017-07-24] MEDS: levETIRAcetam 500 MG TABLET PO SCH ×2 (09:34→21:17)
[2017-07-24] MEDS: ASPIRIN EC 81 MG TABLET PO SCH (09:34)
[2017-07-24] MEDS: ENOXAPARIN 40 MG/0.4 ML SYRINGE SUBCUT SCH (09:34)
[2017-07-24] MEDS: CLOPIDOGREL 75 MG TABLET PO SCH (09:34)
[2017-07-24] MEDS: PANTOPRAZOLE 40 MG TABLET PO SCH (09:34)
[2017-07-24] MEDS: DOCUSATE SODIUM 100 MG CAPSULE PO SCH ×2 (09:34→21:17)
[2017-07-24] MEDS: CARVEDILOL 25 MG TABLET PO SCH ×2 (09:34→21:17)
[2017-07-24] MEDS: RANOLAZINE 500 MG TABLET PO SCH ×2 (09:34→21:17)
[2017-07-24] MEDS: DEXAMETHASONE 4 MG TABLET PO SCH ×2 (09:35→21:17)
[2017-07-24] MEDS: KETOCONAZOLE 2% CREAM 30 GM TUBE TOP SCH ×2 (09:35→21:18)
[2017-07-24] MEDS: DESITIN 4OZ/NYSTATIN 15 GRAM MIXTURE PASTE TOP SCH ×2 (09:35→21:18)
[2017-07-24] MEDS: amLODIPine 10 MG TABLET PO SCH (21:17)
[2017-07-24] MEDS: traZODone 50 MG TABLET PO SCH (21:17)
[2017-07-24] MEDS: PRAVASTATIN 40 MG TABLET PO SCH (21:23)
[2017-07-25] MEDS: CIPROFLOXACIN INJ 400 MG in PREMIX 1 EACH IV SCH ×2 (05:03→16:55)
[2017-07-25] MEDS: levETIRAcetam 500 MG TABLET PO SCH ×2 (08:27→20:57)
[2017-07-25] MEDS: CARVEDILOL 25 MG TABLET PO SCH ×2 (08:28→20:57)
[2017-07-25] MEDS: METOCLOPRAMIDE 5 MG TABLET PO SCH ×4 (08:28→20:56)
[2017-07-25] MEDS: ASPIRIN EC 81 MG TABLET PO SCH (08:28)
[2017-07-25] MEDS: PANTOPRAZOLE 40 MG TABLET PO SCH (08:29)
[2017-07-25] MEDS: RANOLAZINE 500 MG TABLET PO SCH ×2 (08:29→20:56)
[2017-07-25] MEDS: DOCUSATE SODIUM 100 MG CAPSULE PO SCH ×2 (08:29→20:57)
[2017-07-25] MEDS: CLOPIDOGREL 75 MG TABLET PO SCH (08:30)
[2017-07-25] MEDS: DEXAMETHASONE 4 MG TABLET PO SCH ×2 (08:30→20:57)
[2017-07-25] MEDS: KETOCONAZOLE 2% CREAM 30 GM TUBE TOP SCH ×2 (08:42→20:57)
[2017-07-25] MEDS: ENOXAPARIN 40 MG/0.4 ML SYRINGE SUBCUT SCH (08:42)
[2017-07-25] MEDS: DESITIN 4OZ/NYSTATIN 15 GRAM MIXTURE PASTE TOP SCH ×2 (08:42→20:57)
[2017-07-25] MEDS: SODIUM CHLORIDE 0.9% 1,000 ML IV SCH ×2 (16:17→18:46)
[2017-07-25] MEDS: amLODIPine 10 MG TABLET PO SCH (20:56)
[2017-07-25] MEDS: PRAVASTATIN 40 MG TABLET PO SCH (20:57)
[2017-07-25] MEDS: traZODone 50 MG TABLET PO SCH (20:57)
[2017-07-26] MEDS: CIPROFLOXACIN INJ 400 MG in PREMIX 1 EACH IV SCH ×2 (05:57→18:41)
[2017-07-26] MEDS: SODIUM CHLORIDE 0.9% 1,000 ML IV SCH ×2 (08:32→22:50)
[2017-07-26] MEDS: DEXAMETHASONE 4 MG TABLET PO SCH ×2 (08:32→21:55)
[2017-07-26] MEDS: DOCUSATE SODIUM 100 MG CAPSULE PO SCH ×2 (08:34→21:54)
[2017-07-26] MEDS: RANOLAZINE 500 MG TABLET PO SCH ×2 (08:34→21:54)
[2017-07-26] MEDS: METOCLOPRAMIDE 5 MG TABLET PO SCH ×4 (08:34→21:54)
[2017-07-26] MEDS: CLOPIDOGREL 75 MG TABLET PO SCH (08:34)
[2017-07-26] MEDS: levETIRAcetam 500 MG TABLET PO SCH ×2 (08:34→21:54)
[2017-07-26] MEDS: PANTOPRAZOLE 40 MG TABLET PO SCH (08:34)
[2017-07-26] MEDS: ASPIRIN EC 81 MG TABLET PO SCH (08:35)
[2017-07-26] MEDS: KETOCONAZOLE 2% CREAM 30 GM TUBE TOP SCH ×2 (08:35→21:56)
[2017-07-26] MEDS: CARVEDILOL 25 MG TABLET PO SCH ×2 (08:35→21:55)
[2017-07-26] MEDS: DESITIN 4OZ/NYSTATIN 15 GRAM MIXTURE PASTE TOP SCH ×2 (08:35→21:55)
[2017-07-26] MEDS: ENOXAPARIN 40 MG/0.4 ML SYRINGE SUBCUT SCH (08:35)
[2017-07-26] MEDS: PRAVASTATIN 40 MG TABLET PO SCH (21:54)
[2017-07-26] MEDS: amLODIPine 10 MG TABLET PO SCH (21:54)
[2017-07-26] MEDS: traZODone 50 MG TABLET PO SCH (21:55)
[2017-07-27] MEDS: CIPROFLOXACIN INJ 400 MG in PREMIX 1 EACH IV SCH ×2 (04:09→16:41)
[2017-07-27] MEDS: RANOLAZINE 500 MG TABLET PO SCH ×2 (08:48→22:05)
[2017-07-27] MEDS: DESITIN 4OZ/NYSTATIN 15 GRAM MIXTURE PASTE TOP SCH ×2 (08:48→22:07)
[2017-07-27] MEDS: DOCUSATE SODIUM 100 MG CAPSULE PO SCH ×2 (08:48→22:05)
[2017-07-27] MEDS: CLOPIDOGREL 75 MG TABLET PO SCH (08:48)
[2017-07-27] MEDS: METOCLOPRAMIDE 5 MG TABLET PO SCH ×4 (08:49→22:06)
[2017-07-27] MEDS: PANTOPRAZOLE 40 MG TABLET PO SCH (08:49)
[2017-07-27] MEDS: ENOXAPARIN 40 MG/0.4 ML SYRINGE SUBCUT SCH (08:49)
[2017-07-27] MEDS: DEXAMETHASONE 4 MG TABLET PO SCH ×2 (08:49→22:05)
[2017-07-27] MEDS: CARVEDILOL 25 MG TABLET PO SCH ×2 (08:49→22:06)
[2017-07-27] MEDS: levETIRAcetam 500 MG TABLET PO SCH ×2 (08:49→22:05)
[2017-07-27] MEDS: ASPIRIN EC 81 MG TABLET PO SCH (08:49)
[2017-07-27] MEDS: KETOCONAZOLE 2% CREAM 30 GM TUBE TOP SCH ×2 (08:50→22:07)
[2017-07-27] MEDS ORDERED: SODIUM CHLORIDE 0.9% IV ONE (10:00)
[2017-07-27] MEDS ORDERED: BEVACIZUMAB IV ONE (10:00)
[2017-07-27 11:32] LABS: Apearance,Urine CLEAR (Clear); Bacteria,Urine Occasional /HPF (Few); Bilirubin,Urine Negative (Negative); Blood, Urine Small mg/dL (Negative); Glucose,Urine (UA) >=500 mg/dL (Negative); Ketones,Urine Negative (Negative); Nitrite,Urine Negative (Negative); Protein,Urine Negative; RBC,Urine <1 /HPF (0-4); Squamous Epithelial Cell,Urine Occasional /HPF (0-10); Urine Color Yellow (Yellow); Urine Specific Gravity 1.014 (1.001-1.035); Urine Urobilinogen < 2.0 EU/DL (0.2-1.0); WBC,Urine 2 /HPF (0-6)
[2017-07-27] MEDS: SODIUM CHLORIDE 0.9% 1,000 ML IV SCH (16:42)
[2017-07-27] MEDS: amLODIPine 10 MG TABLET PO SCH (22:06)
[2017-07-27] MEDS: PRAVASTATIN 40 MG TABLET PO SCH (22:06)
[2017-07-27] MEDS: traZODone 50 MG TABLET PO SCH (22:06)
[2017-07-28] MEDS: SODIUM CHLORIDE 0.9% 1,000 ML IV SCH (01:20)
[2017-07-28] MEDS: CIPROFLOXACIN INJ 400 MG in PREMIX 1 EACH IV SCH ×2 (04:35→16:51)
[2017-07-28] MEDS: RANOLAZINE 500 MG TABLET PO SCH ×2 (09:38→21:52)
[2017-07-28] MEDS: CARVEDILOL 25 MG TABLET PO SCH ×2 (09:38→21:52)
[2017-07-28] MEDS: PANTOPRAZOLE 40 MG TABLET PO SCH (09:39)
[2017-07-28] MEDS: ASPIRIN EC 81 MG TABLET PO SCH (09:39)
[2017-07-28] MEDS: DOCUSATE SODIUM 100 MG CAPSULE PO SCH ×2 (09:39→21:52)
[2017-07-28] MEDS: DEXAMETHASONE 4 MG TABLET PO SCH ×2 (09:40→21:50)
[2017-07-28] MEDS: METOCLOPRAMIDE 5 MG TABLET PO SCH ×4 (09:41→21:51)
[2017-07-28] MEDS: levETIRAcetam 500 MG TABLET PO SCH ×2 (09:41→21:52)
[2017-07-28] MEDS: CLOPIDOGREL 75 MG TABLET PO SCH (09:42)
[2017-07-28] MEDS: ENOXAPARIN 40 MG/0.4 ML SYRINGE SUBCUT SCH (09:43)
[2017-07-28] MEDS: DESITIN 4OZ/NYSTATIN 15 GRAM MIXTURE PASTE TOP SCH ×2 (09:44→21:53)
[2017-07-28] MEDS: KETOCONAZOLE 2% CREAM 30 GM TUBE TOP SCH ×2 (09:44→21:53)
[2017-07-28] MEDS: traZODone 50 MG TABLET PO SCH (21:51)
[2017-07-28] MEDS: amLODIPine 10 MG TABLET PO SCH (21:51)
[2017-07-28] MEDS: PRAVASTATIN 40 MG TABLET PO SCH (21:52)
[2017-07-29] MEDS: CIPROFLOXACIN INJ 400 MG in PREMIX 1 EACH IV SCH ×2 (04:13→16:52)
[2017-07-29] MEDS: MYLANTA/LIDO VISC 2:1 300 ML BOTTLE SWISH/SWAL PRN ×5 (04:16→21:14)
[2017-07-29] MEDS: METOCLOPRAMIDE 5 MG TABLET PO SCH ×4 (07:43→21:05)
[2017-07-29] MEDS: DEXAMETHASONE 4 MG TABLET PO SCH ×2 (09:56→21:06)
[2017-07-29] MEDS: DOCUSATE SODIUM 100 MG CAPSULE PO SCH ×2 (09:59→21:05)
[2017-07-29] MEDS: RANOLAZINE 500 MG TABLET PO SCH ×2 (09:59→21:05)
[2017-07-29] MEDS: PANTOPRAZOLE 40 MG TABLET PO SCH (10:00)
[2017-07-29] MEDS: ASPIRIN EC 81 MG TABLET PO SCH (10:00)
[2017-07-29] MEDS: CARVEDILOL 25 MG TABLET PO SCH ×2 (10:01→21:06)
[2017-07-29] MEDS: CLOPIDOGREL 75 MG TABLET PO SCH (10:02)
[2017-07-29] MEDS: levETIRAcetam 500 MG TABLET PO SCH ×2 (10:05→21:05)
[2017-07-29] MEDS: DESITIN 4OZ/NYSTATIN 15 GRAM MIXTURE PASTE TOP SCH ×2 (10:06→21:19)
[2017-07-29] MEDS: KETOCONAZOLE 2% CREAM 30 GM TUBE TOP SCH ×2 (10:07→21:21)
[2017-07-29] MEDS: ENOXAPARIN 40 MG/0.4 ML SYRINGE SUBCUT SCH (10:07)
[2017-07-29] MEDS: amLODIPine 10 MG TABLET PO SCH (21:05)
[2017-07-29] MEDS: traZODone 50 MG TABLET PO SCH (21:06)
[2017-07-29] MEDS: PRAVASTATIN 40 MG TABLET PO SCH (21:06)
[2017-07-30] MEDS ORDERED: diphenhydrAMINE CAP 25 MG CAPSULE PO ONE
[2017-07-30] MEDS: CIPROFLOXACIN INJ 400 MG in PREMIX 1 EACH IV SCH ×2 (05:07→16:59)
[2017-07-30] MEDS: METOCLOPRAMIDE 5 MG TABLET PO SCH ×3 (09:16→17:07)
[2017-07-30] MEDS: ASPIRIN EC 81 MG TABLET PO SCH (09:16)
[2017-07-30] MEDS: PANTOPRAZOLE 40 MG TABLET PO SCH (09:16)
[2017-07-30] MEDS: DEXAMETHASONE 4 MG TABLET PO SCH (09:16)
[2017-07-30] MEDS: DOCUSATE SODIUM 100 MG CAPSULE PO SCH (09:16)
[2017-07-30] MEDS: RANOLAZINE 500 MG TABLET PO SCH (09:16)
[2017-07-30] MEDS: CLOPIDOGREL 75 MG TABLET PO SCH (09:16)
[2017-07-30] MEDS: ENOXAPARIN 40 MG/0.4 ML SYRINGE SUBCUT SCH (09:17)
[2017-07-30] MEDS: DESITIN 4OZ/NYSTATIN 15 GRAM MIXTURE PASTE TOP SCH (09:17)
[2017-07-30] MEDS: levETIRAcetam 500 MG TABLET PO SCH (09:17)
[2017-07-30] MEDS: KETOCONAZOLE 2% CREAM 30 GM TUBE TOP SCH (09:17)
[2017-07-30] MEDS: CARVEDILOL 25 MG TABLET PO SCH (09:17)
[2017-07-30] MEDS: MYLANTA/LIDO VISC 2:1 300 ML BOTTLE SWISH/SWAL PRN ×2 (09:26→17:09)
[2017-07-30 16:50] VITALS: BP 156/88
== END 2017-07-30 18:43 | disposition home health service (06) | DRG 55 ==
LOC: EDBD → EDUNIT# → N.ED 21:09 → SUATTDRO 07-20 01:11 → N.EDINP 07-20 01:11 → N.TELEN 07-20 03:44 → N.4E 07-24 18:41
PROVIDERS: ADMIT Internal Medicine Infectious Disease; ATTEND Family Medicine